=== PATIENT | male | born 1940 | race Asian ===

== ENCOUNTER 2018-08-22 11:01 | Outpatient (CLI) | payer MEDICARE ==
--- NOTE | 2018-08-22 15:18 | NM ---
WHOLE BODY BONE SCAN: DATE: 08/22/2018. PROVIDED CLINICAL HISTORY: Malignant neoplasm of prostate, low back pain. FINDINGS: No comparisons. 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 There is increased radiotracer upt tricia seen at the shoulders, sternoclavicular joints, wrists, knees, and ankles. There are foci of inc reased radiotracer uptake involving the lower lumbar spine, particularly left of midline which is pro bably L5. IMPRESSION: Radiotracer uptake involving the lower lumbar spine may be degenerative in nature. Given the patient 's history and symptoms here, CT or radiographic correlation should be considered. POS: YANIRA
== END 2018-08-22 11:02 | disposition home or self-care (01) ==
LOC: NM 11:01
PROVIDERS: ATTEND Urology
DX: C61 Malignant neoplasm of prostate (principal); R94.8 Abnormal results of function studies of other organs and systems
CPT/HCPCS: 78306; A9503

== ENCOUNTER 2022-05-28 10:20 | Outpatient (CLI) | payer MEDICARE | END 2022-05-28 10:21 | disposition home or self-care (01) | LOC: BICMAMMO 10:20 | PROVIDERS: ATTEND Surgery | DX: N62 Hypertrophy of breast (principal) | CPT/HCPCS: 77066; G0279 ==

== ENCOUNTER 2024-04-06 12:53 | Outpatient (CLI) | payer MEDICARE | END 2024-04-06 12:54 | disposition home or self-care (01) | LOC: RAD 12:53 | PROVIDERS: ATTEND Family Medicine Sports Medicine | DX: M47.26 Other spondylosis with radiculopathy, lumbar region (principal); Z95.0 Presence of cardiac pacemaker | CPT/HCPCS: 71046 ==

== ENCOUNTER 2024-04-08 15:09 | Outpatient (CLI) | payer MEDICARE | END 2024-04-08 15:10 | disposition home or self-care (01) | LOC: MRI 15:09 | PROVIDERS: ATTEND Family Medicine Sports Medicine | DX: M47.26 Other spondylosis with radiculopathy, lumbar region (principal); M47.817 Spondylosis without myelopathy or radiculopathy, lumbosacral region; M48.061 Spinal stenosis, lumbar region without neurogenic claudication | CPT/HCPCS: 72148 ==